=== PATIENT | female | born 1985 | race Caucasian/White ===

== ENCOUNTER → 2024-05-14 14:44 | Outpatient (REF) | payer OTHER, SELFPAY | LOC: PNTC 14:44 | PROVIDERS: ATTENDING PHYSICIAN Nurse Practitioner Family | DX: O36.80X0 Pregnancy with inconclusive fetal viability, not applicable or unspecified (principal); Z34.01 Encounter for supervision of normal first pregnancy, first trimester | CPT/HCPCS: 76801; 76817 ==

== ENCOUNTER → 2024-05-21 09:25 | Outpatient (REF) | payer OTHER, SELFPAY | LOC: PNTC 09:25 | PROVIDERS: ATTENDING PHYSICIAN Obstetrics & Gynecology | DX: O36.80X0 Pregnancy with inconclusive fetal viability, not applicable or unspecified (principal) | CPT/HCPCS: 76815 ==

== ENCOUNTER 2024-05-25 06:19 | Day surgery (SDC) | payer OTHER, SELFPAY ==
[2024-05-25] VITALS (8 sets, daily range): BP systolic 100–113; BP diastolic 48–57; BMI 23.4
[2024-05-25] MEDS: NORMOSOL-R/PLASMALYTE-A 1000 IV (06:47)
[2024-05-25] MEDS: CELEBREX 200 MG PO (06:47)
[2024-05-25] MEDS: TYLENOL 1000 MG PO (06:47)
[2024-05-25] MEDS: VIBRAMYCIN 260 MG IV (06:55)
[2024-05-25 06:57] LABS: Hematocrit 32.6 % (37.0-47.0); Hemoglobin 11.4 g/dL (12.0-16.0)
== END 2024-05-25 09:33 | disposition home or self-care (01) ==
LOC: SDS 06:19
PROVIDERS: ATTENDING PHYSICIAN Obstetrics & Gynecology
DX: O02.1 Missed abortion (principal); Z3A.01 Less than 8 weeks gestation of pregnancy
CPT/HCPCS: 59820; 88305; 85014; 85018; 86850; 86900; 86901

== ENCOUNTER 2024-08-10 12:22 | Emergency (ER) | payer OTHER, SELFPAY ==
[2024-08-10 12:24] VITALS: BP 111/71
[2024-08-10 13:22] LABS: Beta HCG Quantitative 994.36 mIU/ml
[2024-08-10 13:36] LABS: ALT (SGPT) 32 U/L (0-35); AST (SGOT) 35 U/L (14-36); Albumin 4.2 g/dl (3.5-5.0); Alkaline Phosphatase 48 U/L (38-126); Blood Urea Nitrogen 16 mg/dl (7-17); Calcium 9.2 mg/dl (8.4-10.2); Carbon Dioxide 24 mmol/L (22-30); Chloride 104 mmol/L (98-107); Glucose 104 mg/dl (70-99); Potassium 3.9 mmol/L (3.5-5.1); Sodium 135 mmol/L (135-145); Total Bilirubin 0.1 mg/dl (0.2-1.3); Total Protein 6.8 g/dl (6.3-8.2); eGFR > 60.00
--- NOTE | 2024-08-10 15:09 | ED.GENMED ---
History of Present Illness
General
Chief Complaint: Problems
Source: patient
Time Seen by Provider: 08/10/24 14:48
History of Present Illness
History of Present Illness:
38-year-old female presents to the emergency room for evaluation due to abnormally rising beta hCG levels. Will be concerned the patient may have an ectopic . Patient is approximately 8 weeks by dates. She had an hCG drawn 3 times over
the past several days. The levels have been all at about 880 and not rising. Patient denies any abdominal pain. She denies any vaginal bleeding or spotting. She did have some low back pain but not currently.
Phy Exam
Physical Exam
Physical Exam:
General: Awake, Alert, Oriented X3. No acute distress.
Vitals: unremarkable
Head: Atraumatic
Eyes: Pupils equal, EOMI
Neck: Trachea midline
Lungs: Clear and equal b/l
Heart: Regular rate, no murmurs
Abd: Soft, Nontender, No pulsatile mass
Neuro: Grossly nonfocal
Skin: Warm, dry, no rash
Course
Orders/Labs/Results
Orders:
Orders
08/10/24 12:27
US W Transvaginal Urgent
Reason For Exam: pain
08/10/24 12:39
Type+Screen Urgent
Beta HCG Quantitative Urgent
Is this a screen?: No
Comprehensive Metabolic Panel Urgent
Abnormal Lab Results
08/10/24
12:39
Glucose 104 H mg/dl
(70-99)
Total Bilirubin 0.1 L mg/dl
(0.2-1.3)
08/10/24 12:39
Vital Signs
Initial and Last Documented VS:
Initial Vital Signs
Temp Pulse Resp BP Pulse Ox
98.5 F 72 18 111/71 100
08/10/24 12:24 08/10/24 12:24 08/10/24 12:24 08/10/24 12:24 08/10/24 12:24
Last Documented Vital Signs
Temp Pulse Resp BP Pulse Ox
98.5 F 72 18 111/71 100
08/10/24 12:24 08/10/24 12:24 08/10/24 12:24 08/10/24 12:24 08/10/24 12:24
Information
Weeks gestation: Weeks: (6)
Location: Location: (iup)
MDM/Problems Addressed
Differential Diagnosis Includes:
Ectopic , missed , threatened , IUP
MDM/Problems Addressed:
Patient had an ultrasound today which confirmed the presence of an IUP. Her blood type is O+. Her hCG has increased a bit at 994. Dr. Whipple is tied up in a surgical procedure but will contact the patient later today to discuss next steps.
*Radiology
Radiology exam reviewed: radiology read reviewed
*Pulse Oximetry
Patient hypoxic: no
*Critical Care Note
Total Time (30-74mins, 75-104mins- exclusive of procedures): Not Applicable
ED Attending Note
-
Portions of this chart may have been created with voice recognition software.� Occasional wrong word or��sound alike� substitutions may have occurred due to the inherent limitations of voice recognition software.
Discharge Plan
Departure
Patient Disposition: Home (Routine Discharge)
Date of Disposition: 08/10/24
Time of Disposition: 15:09
Patient with high blood pressure during this ER visit?: No
Condition: Good
Discharge Problem:
Threatened
Instructions: Threatened Miscarriage (DC)
Prescriptions:
No Action
acetaminophen 325 mg tablet
650 mg PO Q6H PRN (Reason: pain)
Referrals:
Padilla Whipple MD [Active] -
Deandre Hodges MD [Family Provider] -
Activity Restrictions/Additional Instructions:
Dr. Whipple will contact you later today when she finishes in the OR. You u/s did show a live intrauterine so there is no need for any medication today. Dr. Whipple will discuss what to expect over the coming days when she contacts
you.
Interventions
Interventions:
*Risk Screen - Suicide Last Done: 08/10/24 12:24
*Neglect/Abuse Screening Last Done: 08/10/24 12:24
Discharge Date and Time
Print Language: IRISH
[2024-08-10 15:34] VITALS: BP 118/78
== END 2024-08-10 15:36 | disposition home or self-care (01) ==
LOC: EMR 12:22
PROVIDERS: Obstetrics & Gynecology; EMERGENCY PHYSICIAN Emergency Medicine; FAMILY PHYSICIAN Internal Medicine Geriatric Medicine
DX: O20.0 Threatened abortion (principal); Z3A.01 Less than 8 weeks gestation of pregnancy
CPT/HCPCS: 99284; 76801; 76817; 80053; 84702; 86850; 86900; 86901

== ENCOUNTER → 2024-08-16 10:48 | Outpatient (REF) | payer OTHER, SELFPAY | LOC: PNTC 10:48 | PROVIDERS: ATTENDING PHYSICIAN Nurse Practitioner Family | DX: O36.80X0 Pregnancy with inconclusive fetal viability, not applicable or unspecified (principal) | CPT/HCPCS: 76815; 76817 ==

== ENCOUNTER → 2025-01-02 09:55 | Outpatient (REF) | payer OTHER, SELFPAY | LOC: HWRAD 09:55 | PROVIDERS: ATTENDING PHYSICIAN Nurse Practitioner Family; FAMILY PHYSICIAN Internal Medicine Geriatric Medicine | DX: Z34.90 Encounter for supervision of normal pregnancy, unspecified, unspecified trimester (principal) | CPT/HCPCS: 76801 ==

== ENCOUNTER → 2025-01-04 10:05 | Outpatient (REF) | payer OTHER, SELFPAY | LOC: RAD 10:05 | PROVIDERS: ATTENDING PHYSICIAN Student in an Organized Health Care Education/Training Program; FAMILY PHYSICIAN Internal Medicine Geriatric Medicine | DX: O26.859 Spotting complicating pregnancy, unspecified trimester (principal) | CPT/HCPCS: 76801 ==

== ENCOUNTER → 2025-01-29 08:29 | Outpatient (REF) | payer OTHER, SELFPAY | LOC: PNTC 08:29 | PROVIDERS: ATTENDING PHYSICIAN Obstetrics & Gynecology | DX: Z36.0 Encounter for antenatal screening for chromosomal anomalies (principal); Z36.82 Encounter for antenatal screening for nuchal translucency | CPT/HCPCS: 76801; 76813 ==

== ENCOUNTER → 2025-03-28 08:20 | Outpatient (REF) | payer OTHER, SELFPAY | LOC: PNTC 08:20 | PROVIDERS: ATTENDING PHYSICIAN Obstetrics & Gynecology | DX: O09.522 Supervision of elderly multigravida, second trimester (principal); Z36.3 Encounter for antenatal screening for malformations; Z36.86 Encounter for antenatal screening for cervical length | CPT/HCPCS: 76811 ==

== ENCOUNTER → 2025-05-06 10:20 | Outpatient (REF) | payer OTHER, SELFPAY | LOC: PNTC 10:20 | PROVIDERS: ATTENDING PHYSICIAN Obstetrics & Gynecology | DX: O09.522 Supervision of elderly multigravida, second trimester (principal) | CPT/HCPCS: 76816 ==

== ENCOUNTER → 2025-05-09 07:33 | Outpatient (REF) | payer OTHER, SELFPAY | LOC: HWRAD 07:33 | PROVIDERS: ATTENDING PHYSICIAN Obstetrics & Gynecology; FAMILY PHYSICIAN Internal Medicine Geriatric Medicine | DX: O22.02 Varicose veins of lower extremity in pregnancy, second trimester (principal) | CPT/HCPCS: 93971 ==

== ENCOUNTER → 2025-06-06 09:57 | Outpatient (REF) | payer OTHER, SELFPAY | LOC: PNTC 09:57 | PROVIDERS: ATTENDING PHYSICIAN Obstetrics & Gynecology | DX: O09.523 Supervision of elderly multigravida, third trimester (principal) | CPT/HCPCS: 76816 ==

== ENCOUNTER → 2025-07-02 07:05 | Outpatient (REF) | payer OTHER, SELFPAY | LOC: PNTC 07:05 | PROVIDERS: ATTENDING PHYSICIAN Obstetrics & Gynecology | DX: Z36.2 Encounter for other antenatal screening follow-up (principal); O09.523 Supervision of elderly multigravida, third trimester | CPT/HCPCS: 76816 ==

== ENCOUNTER → 2025-07-25 16:25 | Outpatient (REF) | payer OTHER, SELFPAY | LOC: PNTC 16:25 | PROVIDERS: ATTENDING PHYSICIAN Obstetrics & Gynecology | DX: O36.8130 Decreased fetal movements, third trimester, not applicable or unspecified (principal); P02.69 Newborn affected by other conditions of umbilical cord; O69.3XX0 Labor and delivery complicated by short cord, not applicable or unspecified; I83.10 Varicose veins of unspecified lower extremity with inflammation | CPT/HCPCS: 59025 ==

== ENCOUNTER 2025-08-07 08:11 | Observation (INO) | payer OTHER, SELFPAY ==
[2025-08-07 08:17] VITALS: BP 122/93; BMI 26.6
[2025-08-07 09:22] LABS: Hematocrit 38.9 % (37.0-47.0); Hemoglobin 13.8 g/dL (12.0-16.0); Mean Corp Hgb Conc. 35.5 g/dL (33.0-37.0); Mean Corpuscular Volume 85.5 fL (81.0-99.0); Nucleated Red Blood Cells % 0 %; Platelet Count 213 10^3/uL (130-400); Red Cell Dist. Width 13.4 % (11.5-14.5)
[2025-08-07] MEDS: CYTOTEC 50 MICROGRAM PO ×2 (10:04→14:18)
== END 2025-08-07 18:36 | disposition home or self-care (01) ==
LOC: LDRP 08:11
PROVIDERS: Obstetrics & Gynecology; ADMITTING PHYSICIAN Obstetrics & Gynecology
DX: O61.0 Failed medical induction of labor (principal); Z3A.39 39 weeks gestation of pregnancy
CPT/HCPCS: 76805; 85025; 86850; 86900; 86901; G0378

== ENCOUNTER 2025-08-07 20:14 | Inpatient (IN) | payer OTHER, SELFPAY ==
[2025-08-07 20:27] VITALS: BP 124/79; BMI 26.6
[2025-08-07] MEDS: PITOCIN 10 UNITS IM (21:01)
[2025-08-07] MEDS: PITOCIN 30 UNITS/NSS 500 ML IV (21:17)
[2025-08-07] MEDS: METHERGINE INJECTION 0.2 MG IM (22:57)
[2025-08-07] MEDS: TYLENOL 650 MG PO (23:25)
[2025-08-08] MEDS: MOTRIN 600 MG PO ×4 (00:44→21:52)
[2025-08-08 04:21] LABS: Hematocrit 39.8 % (37.0-47.0); Hemoglobin 14.1 g/dL (12.0-16.0)
[2025-08-08] MEDS: TYLENOL 650 MG PO ×3 (04:24→19:49)
[2025-08-08] MEDS: PRENATAL PLUS 1 TABLET PO (07:56)
[2025-08-08] MEDS: COLACE 100 MG PO ×2 (07:56→19:50)
[2025-08-09] MEDS: MOTRIN 600 MG PO (06:26)
[2025-08-09] MEDS: COLACE 100 MG PO (09:11)
[2025-08-09] MEDS: PRENATAL PLUS 1 TABLET PO (09:11)
[2025-08-09 16:10] LABS: Syphilis/T. pallidum Ab Reflex Negative (Negative)
== END 2025-08-09 14:06 | disposition home or self-care (01) | DRG 807 ==
LOC: LDRP 20:14
PROVIDERS: ADMITTING PHYSICIAN Obstetrics & Gynecology
PROC: 10E0XZZ Delivery of Products of Conception, External Approach (ICD-10-PCS; 2025-08-07)
DX: O42.02 Full-term premature rupture of membranes, onset of labor within 24 hours of rupture (principal); Z37.0 Single live birth; Z3A.39 39 weeks gestation of pregnancy; O71.82 Other specified trauma to perineum and vulva
CPT/HCPCS: 85014; 85018; 85025; 86780; 86850; 86900; 86901; G0378